=== PATIENT | male | born 1960 | race Caucasian/White ===

== ENCOUNTER 2019-01-23 12:35 | Emergency (ER) | payer BC ==
--- NOTE | 2019-01-23 12:58 | EDM.PDOC ---
ED HPI GENERAL MEDICAL PROBLEM - General Chief Complaint: Head Injury Stated Complaint: BACK OF HEAD INJURY Time Seen by Provider: 01/23/19 12:39 Source of Information: Reports: Patient History Limitations: Reports: No Limitations - History of Present Illness INITIAL COMMENTS - FREE TEXT/NARRATIVE: Presents reporting a head injury. 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 He raised the post hazmat truck driver a little too high and it struck the top of the post as he started his downward stroke. The hazmat truck driver popped up and struck him on the top of the head. The pain "brought him to his knees" but he did not lose consciousness and he went on to pound 2 more fence posts afterward. He has a mild headache but no nausea, visual symptoms, focal weakness. He came in because he has a scalp laceration. Tetanus vaccine less than 2 years ago. He has no other medical problems and does not use blood thinners. head Pain Score (Numeric/FACES): 5 - Related Data Allergies Allergy/AdvReac Type Severity Reaction Status Date / Time No Known Allergies Allergy Verified 01/23/19 12:37 Home Meds: Home Meds Omeprazole Magnesium [Prilosec Otc] 20 mg PO DAILY 01/23/19 [History] PARoxetine [Paxil] 40 mg PO DAILY 01/23/19 [History] Past Medical History Genitourinary History: Reports: Renal Calculus Musculoskeletal History: Reports: Fracture Social & Family History - Family History Family Medical History: Noncontributory - Tobacco Use Smoking Status *Q: Light Tobacco Smoker Years of Tobacco use: 3 Packs/Tins Daily: 0.2 - Recreational Drug Use Recreational Drug Use: No ED ROS GENERAL - Review of Systems Review Of Systems: ROS reveals no pertinent complaints other than HPI. ED EXAM, HEAD INJURY - Physical Exam Exam: See Below Exam Limited By: No Limitations General Appearance: Alert, No Apparent Distress Head: Other ([place] of head 3 cm hematoma with superficial abrasion. 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 nml As Tested, No Motor/Sensory Deficits, Alert, Normal Mood/Affect, Oriented x 3 Skin: Normal Color, Warm/Dry Course - Vital Signs Last Recorded V/S: Last Vital Signs Temp 36.6 C 01/23/19 12:38 Pulse 92 01/23/19 12:38 Resp 18 01/23/19 12:38 BP 136/86 01/23/19 12:38 Pulse Ox 97 01/23/19 12:38 Departure - Departure Time of Disposition: 13:42 Disposition: Home, Self-Care 01 Condition: Good Clinical Impression: Hematoma Head injury Qualifiers: Encounter type: initial encounter Qualified Code(s): S09.90XA - Unspecified injury of head, initial encounter - Discharge Information Referrals: PCP,Unknown [Primary Care Provider] - [facility] [Outside] [facility] [Outside] Forms: ED Department Discharge Additional Instructions: 1. Keep abrasion clean and dry. Cool packs 20 minutes every 3-4 hours today 2. Report worsening headache, vomiting, visual symptoms, increased somnolence promptly. 3. Tylenol only as needed for headache
--- NOTE | 2019-01-23 13:26 | CT ---
EXAMINATION: Non contrast CT head. Coronal and sagittal reformats. HISTORY: Pain FINDINGS: No evidence of intra or extra axial hemorrhage, mass, midline shift, hydrocephalus or edema. Likely a periventricular DVA noted. No hypoattenuation changes in the major vascular territories to suggest acute infarct. No abnormal intracranial calcifications are detected. No evidence of substantial vascular calcifications. Mild mucosal thickening is noted within the ethmoid air cells. There is mild rightward deviation of the nasal septum. Pituitary fossa appears unremarkable. Small soft tissue laceration within the right parietal region. Calvarium is intact. No evidence of skull fracture. IMPRESSION: No acute intracranial findings.
== END 2019-01-23 13:59 | disposition home or self-care (01) ==
LOC: MW.ED 12:35
DX: S00.03XA Contusion of scalp, initial encounter (principal); F17.210 Nicotine dependence, cigarettes, uncomplicated; Z79.899 Other long term (current) drug therapy; W22.8XXA Striking against or struck by other objects, initial encounter
CPT/HCPCS: 70450; 70450-26; 99283-25